=== PATIENT | female | born 1975 | race Caucasian/White ===

== ENCOUNTER 2017-07-09 16:36 | Emergency (ER) | payer BC ==
[~2017-07-09] VITALS: Ht 152.4 cm; Wt 63.0 kg
[~2017-07-09 16:36] MED LIST: ACEASPCAF PO; ACET325; ALBU8HFA2 INH; ALBU90OI; ALBU90OI INH; ALBU90OI6 INH; ALBU90OI61 INH; ALPR.5 PO; ALPR1 PO; AMOCLA875 PO; AMOX500 PO; ANTOXYBENA AS; ASPI81CH PO; AZIT250 PO; Ativan1 MG PO; BENADRYL25 MG PO; Bactrim Ds Tab1 EACH PO; CEPH500 PO; CHOL10002 PO; CLOP75 PO; CRUTCH3 USE; CYCL10 PO; Ciloxan5 ML RIGHTEAR; Cleocin HCl300 MG PO; DIPATR PO; DOXY100 PO; ESTR2 PO; ESTRADIOL PO; ESTROVEN ENER PO; FAMO20 PO; FAMO40 PO; FERR325 PO; FLUO10 PO; FLUO20 PO; FLUSAL2505 IH; GABA300 PO; GUAI600T33 PO; HYDACE10B PO; HYDACE5 PO; HYDACE5325 PO; HYDACE7.5 PO; HYDHCL25 PO; HYDR1TAB94 PO; HYOS.125 SL; IBUP200; IBUP200 PO; IBUP600 PO; IBUP800 PO; Imitrex100 MG PO; Imitrex25 MG PO; Keflex500 MG PO; LEVFLO500; LEVFLO500 PO; LISI20 PO; LISI5 PO; MAGCIT300 PO; MECL25 PO; NAPR500 PO; NAPR550 PO; NITR.4SL SL; OMEP20ER PO; ONDA4 PO; ONDA4ODT MM; OXYACE5T; OXYACE5T PO; OXYCODONE PO; Omeprazole20 M1 PO; PANT40 PO; PARO10 PO; PARO20 PO; PARO25 PO; PENVK500 PO; PHENA200 PO; PHENTERMINE PO; PRED10 PO; PRED20 PO; PROACE100 PO; PROCODE120 PO; PROM25 PO; PSEU120ER PO; Pepcid40 MG PO; Percocet 5-3251 EACH PO; Prednisone20 MG PO; Prilosec Otc20 MG PO; RANI150 PO; RXHYDACE PO; RXOXYACE PO; RXPROM25 PO; RXTRAM50 PO; Roxicodone5 MG PO; SUCR1 PO; SULI150 PO; SULTRIDS PO; SUMA25 PO; TOPI100 PO; TRAM50 PO; Ultram50 MG PO; Zithromax250 MG PO; [UNRECOGNIZED DRUG - REMARK]
[2017-07-09 17:38] LABS: BASOPHILS ABSOLUTE AUTO 0.01 K/mm3 (0.00-0.23); BASOPHILS PERCENT AUTO 0 % (0-2); EOSINOPHILS ABSOLUTE AUTO 0.03 K/mm3 (0.00-0.68); EOSINOPHILS PERCENT AUTO 1 % (0-6); Hematocrit 39.7 % (33.0-51.0); Hemoglobin 12.1 g/dL (11.5-16.0); IMMATURE GRAN ABSOLUTE AUTO 0.01 K/mm3 (0.00-0.10); IMMATURE GRAN PERCENT AUTO 0 % (0-1); LYMPHOCYTES ABSOLUTE AUTO 1.58 K/mm3 (0.84-5.20); LYMPHOCYTES PERCENT AUTO 35 % (21-46); MONOCYTES ABSOLUTE AUTO 0.29 K/mm3 (0.16-1.47); MONOCYTES PERCENT AUTO 6 % (4-13); Mean Corpuscular HGB 24.9 pg (26.0-34.0); Mean Corpuscular HGB Conc 30.5 g/dL (31.5-36.5); Mean Corpuscular Volume 82 fL (80-100); Mean Platelet Volume 9.5 fL (9.1-12.4); NEUTROPHILS ABSOLUTE AUTO 2.58 K/mm3 (1.96-9.15); NEUTROPHILS PERCENT AUTO 57 % (41-73); Platelet Count 280 K/mm3 (150-400); RDW Coefficient Variation 15.6 % (11.7-14.2); RDW Standard Deviation 46.6 fL (35.1-46.3); Red Blood Cell Count 4.85 M/mm3 (3.80-5.20)
[2017-07-09 18:01] LABS: Alanine Aminotransfer (ALT/SGP 20 U/L (12-78); Albumin/Globulin Ratio 0.9 (0.8-1.8); Alk Phos 80 U/L (50-136); Anion Gap 9 mmol/L (6-16); Aspartate Aminotrans (AST/SGOT 15 U/L (12-37); Bilirubin, Total 0.4 mg/dL (0.1-1.0); Blood Urea Nitrogen 10 mg/dL (8-24); Bun/Creatinine Ratio 17.3 (12.0-20.0); CO2, Blood 26 mmol/L (21-32); Calcium, Blood 9.4 mg/dL (8.5-10.1); Chloride, Blood 107 mmol/L (98-108); Creatinine, Blood 0.58 mg/dL (0.40-1.00); Globulin, Blood 4.3 g/dL (2.2-4.0); Glomerular Filtration Rate >60 (60-); Glucose, Blood 85 mg/dL (70-99); Potassium, Blood 3.7 mmol/L (3.5-5.5); Sodium, Blood 142 mmol/L (136-145); Total Protein, Blood 8.3 g/dL (6.4-8.2); Troponin I <0.015 ng/mL (0.000-0.040)
[2017-07-09] MEDS ORDERED: Norco 5-325 Ta1 EACH PO (19:27)
[2018-05-29] MEDS ORDERED: Cipro500 MG PO (02:29)
[2018-05-29] MEDS ORDERED: Flagyl500 MG PO (02:29)
== END 2017-07-09 19:43 | disposition home or self-care (01) ==
LOC: ER 16:36
PROVIDERS: Emergency Medicine
DX: R07.89 Other chest pain (principal); I10 Essential (primary) hypertension; G43.909 Migraine, unspecified, not intractable, without status migrainosus; F17.200 Nicotine dependence, unspecified, uncomplicated; J45.909 Unspecified asthma, uncomplicated; Z98.51 Tubal ligation status; Z90.712 Acquired absence of cervix with remaining uterus; Z90.49 Acquired absence of other specified parts of digestive tract
CPT/HCPCS: 36415; 71046; 80053; 84484; 85025; 93005; 93010; 99283

== ENCOUNTER 2017-07-20 15:51 | Emergency (ER) | payer BC ==
[~2017-07-20] VITALS: Ht 152.4 cm; Wt 67.1 kg
[~2017-07-20 15:51] MED LIST changes: +Norco 5-325 Ta1 EACH PO
[2017-07-20 17:05] LABS: BASOPHILS ABSOLUTE AUTO 0.02 K/mm3 (0.00-0.23); BASOPHILS PERCENT AUTO 0 % (0-2); EOSINOPHILS PERCENT AUTO 2 % (0-6); Hematocrit 33.2 % (33.0-51.0); Hemoglobin 10.1 g/dL (11.5-16.0); IMMATURE GRAN ABSOLUTE AUTO 0.01 K/mm3 (0.00-0.10); IMMATURE GRAN PERCENT AUTO 0 % (0-1); LYMPHOCYTES ABSOLUTE AUTO 1.53 K/mm3 (0.84-5.20); LYMPHOCYTES PERCENT AUTO 31 % (21-46); MONOCYTES ABSOLUTE AUTO 0.33 K/mm3 (0.16-1.47); MONOCYTES PERCENT AUTO 7 % (4-13); Mean Corpuscular HGB 24.9 pg (26.0-34.0); Mean Corpuscular HGB Conc 30.4 g/dL (31.5-36.5); Mean Corpuscular Volume 82 fL (80-100); Mean Platelet Volume 9.6 fL (9.1-12.4); NEUTROPHILS ABSOLUTE AUTO 2.98 K/mm3 (1.96-9.15); NEUTROPHILS PERCENT AUTO 60 % (41-73); Platelet Count 246 K/mm3 (150-400); RDW Coefficient Variation 15.8 % (11.7-14.2); RDW Standard Deviation 47.9 fL (35.1-46.3); Red Blood Cell Count 4.05 M/mm3 (3.80-5.20); White Blood Cell Count 4.97 K/mm3 (4.00-11.30)
[2017-07-20 17:26] LABS: Troponin I <0.015 ng/mL (0.000-0.040)
[2017-07-20 17:27] LABS: Anion Gap 6 mmol/L (6-16); Blood Urea Nitrogen 9 mg/dL (8-24); Bun/Creatinine Ratio 17.6 (12.0-20.0); CO2, Blood 26 mmol/L (21-32); Calcium, Blood 8.7 mg/dL (8.5-10.1); Chloride, Blood 108 mmol/L (98-108); Creatinine, Blood 0.51 mg/dL (0.40-1.00); Glomerular Filtration Rate >60 (60-); Glucose, Blood 89 mg/dL (70-99); Potassium, Blood 4.3 mmol/L (3.5-5.5); Sodium, Blood 140 mmol/L (136-145)
[2017-07-20] MEDS ORDERED: Ultram50 MG PO (17:56)
[2017-07-20 18:00] LABS: Influenza A Negative (NEGATIVE); Influenza B Negative (NEGATIVE)
[2018-05-29] MEDS ORDERED: Cipro500 MG PO (02:29)
[2018-05-29] MEDS ORDERED: Flagyl500 MG PO (02:29)
== END 2017-07-20 18:26 | disposition home or self-care (01) ==
LOC: ER 15:51
PROVIDERS: Emergency Medicine
DX: S20.219A Contusion of unspecified front wall of thorax, initial encounter (principal); J44.1 Chronic obstructive pulmonary disease with (acute) exacerbation; M94.0 Chondrocostal junction syndrome [Tietze]; I10 Essential (primary) hypertension; F17.210 Nicotine dependence, cigarettes, uncomplicated; Z86.19 Personal history of other infectious and parasitic diseases; Z90.49 Acquired absence of other specified parts of digestive tract; Z90.710 Acquired absence of both cervix and uterus; X58.XXXA Exposure to other specified factors, initial encounter; Y93.72 Activity, wrestling
CPT/HCPCS: 71046; 80048; 84484; 85025; 87804; 93005; 93010; 94644; 96374; 96375; 99283; J1885; J2405; J2930

== ENCOUNTER 2017-11-26 14:46 | Observation (INO) | payer BC ==
[~2017-11-26] VITALS: Ht 152.4 cm; Wt 73.0 kg
[2017-11-26 15:15] LABS: BASOPHILS ABSOLUTE AUTO 0.01 K/mm3 (0.00-0.23); BASOPHILS PERCENT AUTO 0 % (0-2); EOSINOPHILS ABSOLUTE AUTO 0.06 K/mm3 (0.00-0.68); EOSINOPHILS PERCENT AUTO 1 % (0-6); Hematocrit 38.8 % (33.0-51.0); Hemoglobin 11.8 g/dL (11.5-16.0); IMMATURE GRAN PERCENT AUTO 0 % (0-1); LYMPHOCYTES ABSOLUTE AUTO 2.47 K/mm3 (0.84-5.20); LYMPHOCYTES PERCENT AUTO 48 % (21-46); MONOCYTES ABSOLUTE AUTO 0.36 K/mm3 (0.16-1.47); MONOCYTES PERCENT AUTO 7 % (4-13); Mean Corpuscular HGB 23.6 pg (26.0-34.0); Mean Corpuscular HGB Conc 30.4 g/dL (31.5-36.5); Mean Corpuscular Volume 78 fL (80-100); Mean Platelet Volume 9.6 fL (9.1-12.4); NEUTROPHILS ABSOLUTE AUTO 2.25 K/mm3 (1.96-9.15); NEUTROPHILS PERCENT AUTO 44 % (41-73); Platelet Count 303 K/mm3 (150-400); RDW Coefficient Variation 17.1 % (11.7-14.2); RDW Standard Deviation 47.5 fL (35.1-46.3); Red Blood Cell Count 4.99 M/mm3 (3.80-5.20); White Blood Cell Count 5.15 K/mm3 (4.00-11.30)
[2017-11-26 15:31] LABS: Alanine Aminotransfer (ALT/SGP 23 U/L (12-78); Albumin, Blood 3.8 g/dL (3.4-5.0); Alk Phos 88 U/L (50-136); Anion Gap 7 mmol/L (6-16); Aspartate Aminotrans (AST/SGOT 18 U/L (12-37); Bilirubin, Total 0.4 mg/dL (0.1-1.0); Blood Urea Nitrogen 13 mg/dL (8-24); Bun/Creatinine Ratio 24.9 (12.0-20.0); CO2, Blood 27 mmol/L (21-32); Calcium, Blood 9.1 mg/dL (8.5-10.1); Chloride, Blood 107 mmol/L (98-108); Creatinine, Blood 0.52 mg/dL (0.40-1.00); Globulin, Blood 3.9 g/dL (2.2-4.0); Glomerular Filtration Rate >60 (60-); Glucose, Blood 94 mg/dL (70-99); Potassium, Blood 4.1 mmol/L (3.5-5.5); Sodium, Blood 141 mmol/L (136-145); Total Protein, Blood 7.7 g/dL (6.4-8.2)
[2017-11-26 17:34] LABS: Source, Urine Clean Catch
[2017-11-26 17:37] LABS: Bilirubin, Urine Neg (Neg); Blood, Urine Neg (Neg); Glucose Qualitative, Urine Neg (Neg); Ketones, Urine Neg (Neg); Leukocyte Esterase, Urine Neg (Neg); Nitrite, Urine Neg (Neg); Protein, Urine Neg (Neg); Urobilinogen, Urine NORM (Normal); pH, Urine 6.5 (5.0-8.0)
[2017-11-26 17:43] LABS: Appearance, Urine Clear (Clear); Color, Urine Yellow (P-Yellow)
[2017-11-26] MEDS ORDERED: Excedrin Extra1 EACH PO (20:12)
[2017-11-26] MEDS ORDERED: LORA.5 PO (20:12)
[2017-11-27 05:17] LABS: BASOPHILS ABSOLUTE AUTO 0.01 K/mm3 (0.00-0.23); BASOPHILS PERCENT AUTO 0 % (0-2); EOSINOPHILS ABSOLUTE AUTO 0.06 K/mm3 (0.00-0.68); EOSINOPHILS PERCENT AUTO 2 % (0-6); Hematocrit 33.5 % (33.0-51.0); Hemoglobin 10.2 g/dL (11.5-16.0); IMMATURE GRAN ABSOLUTE AUTO 0.01 K/mm3 (0.00-0.10); IMMATURE GRAN PERCENT AUTO 0 % (0-1); LYMPHOCYTES ABSOLUTE AUTO 2.13 K/mm3 (0.84-5.20); LYMPHOCYTES PERCENT AUTO 60 % (21-46); MONOCYTES ABSOLUTE AUTO 0.34 K/mm3 (0.16-1.47); MONOCYTES PERCENT AUTO 10 % (4-13); Mean Corpuscular HGB 23.6 pg (26.0-34.0); Mean Corpuscular HGB Conc 30.4 g/dL (31.5-36.5); Mean Corpuscular Volume 77 fL (80-100); Mean Platelet Volume 10.3 fL (9.1-12.4); NEUTROPHILS ABSOLUTE AUTO 1.03 K/mm3 (1.96-9.15); NEUTROPHILS PERCENT AUTO 29 % (41-73); Platelet Count 226 K/mm3 (150-400); RDW Standard Deviation 47.6 fL (35.1-46.3); Red Blood Cell Count 4.33 M/mm3 (3.80-5.20); White Blood Cell Count 3.58 K/mm3 (4.00-11.30)
[2017-11-27 05:39] LABS: Magnesium, Blood 2.1 mg/dL (1.6-2.4)
[2017-11-27 05:40] LABS: Alanine Aminotransfer (ALT/SGP 20 U/L (12-78); Albumin, Blood 3.1 g/dL (3.4-5.0); Alk Phos 72 U/L (50-136); Anion Gap 6 mmol/L (6-16); Aspartate Aminotrans (AST/SGOT 15 U/L (12-37); Bilirubin, Total 0.3 mg/dL (0.1-1.0); Blood Urea Nitrogen 10 mg/dL (8-24); Bun/Creatinine Ratio 17.1 (12.0-20.0); CO2, Blood 27 mmol/L (21-32); Calcium, Blood 8.5 mg/dL (8.5-10.1); Chloride, Blood 110 mmol/L (98-108); Creatinine, Blood 0.59 mg/dL (0.40-1.00); Globulin, Blood 3.2 g/dL (2.2-4.0); Glomerular Filtration Rate >60 (60-); Glucose, Blood 89 mg/dL (70-99); Potassium, Blood 4.4 mmol/L (3.5-5.5); Sodium, Blood 143 mmol/L (136-145); Total Protein, Blood 6.3 g/dL (6.4-8.2)
[2017-11-27 12:28] LABS: Hematocrit 34.6 % (33.0-51.0); Hemoglobin 10.6 g/dL (11.5-16.0)
[2017-11-27] MEDS ORDERED: SUCR1 PO (14:34)
[2017-11-27] MEDS ORDERED: Omeprazole20 M1 PO (14:34)
[2017-11-27] MEDS ORDERED: OXYC5 PO (14:35)
== END 2017-11-27 14:49 | disposition home or self-care (01) ==
LOC: ER 14:46 → MEDS 14:47 → ER 17:41 → MEDS 17:41
PROVIDERS: Internal Medicine; Internal Medicine Gastroenterology
PROC: 0DJ08ZZ Inspection of Upper Intestinal Tract, Via Natural or Artificial Opening Endoscopic (ICD-10-PCS; principal; 2017-11-27 08:00)
DX: K29.60 Other gastritis without bleeding (principal); K25.9 Gastric ulcer, unspecified as acute or chronic, without hemorrhage or perforation; K29.80 Duodenitis without bleeding; M79.7 Fibromyalgia; J45.909 Unspecified asthma, uncomplicated; G43.909 Migraine, unspecified, not intractable, without status migrainosus; Z87.891 Personal history of nicotine dependence; Z88.8 Allergy status to other drugs, medicaments and biological substances; Z88.6 Allergy status to analgesic agent
CPT/HCPCS: 36415; 74022; 74177; 80053; 81003; 83690; 83735; 85014; 85018; 85025; 93005; 93010; 96374; 96375; 96376; 99285; C9113; G0378; J0780; J2405; J3010; J7030; J7120; Q9967

== ENCOUNTER 2018-07-28 22:01 | Observation (INO) | payer OTHER ==
[~2018-07-28] VITALS: Ht 152.4 cm; Wt 72.6 kg
[~2018-07-28 22:01] MED LIST changes: +Cipro500 MG PO; +Excedrin Extra1 EACH PO; +Flagyl500 MG PO; +LORA.5 PO; +OXYC5 PO
[2018-07-28] MEDS ORDERED: TOPI50 PO (22:18)
[2018-07-28] MEDS ORDERED: OMEPRAZOLE MAGN20 MG PO (22:18)
[2018-07-28 22:30] LABS: BASOPHILS ABSOLUTE AUTO 0.01 K/mm3 (0.00-0.23); BASOPHILS PERCENT AUTO 0 % (0-2); EOSINOPHILS ABSOLUTE AUTO 0.06 K/mm3 (0.00-0.68); EOSINOPHILS PERCENT AUTO 1 % (0-6); Hematocrit 41.8 % (33.0-51.0); Hemoglobin 12.9 g/dL (11.5-16.0); IMMATURE GRAN ABSOLUTE AUTO 0.02 K/mm3 (0.00-0.10); IMMATURE GRAN PERCENT AUTO 0 % (0-1); LYMPHOCYTES ABSOLUTE AUTO 3.85 K/mm3 (0.84-5.20); LYMPHOCYTES PERCENT AUTO 55 % (21-46); MONOCYTES ABSOLUTE AUTO 0.44 K/mm3 (0.16-1.47); MONOCYTES PERCENT AUTO 6 % (4-13); Mean Corpuscular HGB 26.8 pg (26.0-34.0); Mean Corpuscular HGB Conc 30.9 g/dL (31.5-36.5); Mean Corpuscular Volume 87 fL (80-100); Mean Platelet Volume 10.3 fL (9.1-12.4); NEUTROPHILS ABSOLUTE AUTO 2.66 K/mm3 (1.96-9.15); NEUTROPHILS PERCENT AUTO 38 % (41-73); Platelet Count 248 K/mm3 (150-400); RDW Coefficient Variation 16.3 % (11.7-14.2); RDW Standard Deviation 51.8 fL (35.1-46.3); Red Blood Cell Count 4.81 M/mm3 (3.80-5.20); White Blood Cell Count 7.04 K/mm3 (4.00-11.30)
[2018-07-28 22:46] LABS: Alanine Aminotransfer (ALT/SGP 22 U/L (12-78); Albumin, Blood 3.8 g/dL (3.4-5.0); Alk Phos 71 U/L (50-136); Anion Gap 5 mmol/L (6-16); Aspartate Aminotrans (AST/SGOT 20 U/L (12-37); Bilirubin, Total 0.2 mg/dL (0.1-1.0); Blood Urea Nitrogen 11 mg/dL (8-24); CO2, Blood 27 mmol/L (21-32); Calcium, Blood 8.9 mg/dL (8.5-10.1); Chloride, Blood 107 mmol/L (98-108); Creatinine, Blood 0.79 mg/dL (0.40-1.00); Globulin, Blood 3.9 g/dL (2.2-4.0); Glomerular Filtration Rate >60 (60-); Glucose, Blood 68 mg/dL (70-99); Potassium, Blood 3.7 mmol/L (3.5-5.5); Sodium, Blood 139 mmol/L (136-145); Total Protein, Blood 7.7 g/dL (6.4-8.2); Troponin I <0.015 ng/mL (0.000-0.040)
[2018-07-29 04:10] LABS: U Amphetamine Screen Not Detected; U Barbituate Screen Not Detected; U Benzodiazapine Screen Not Detected; U Buprenorphine Screen Not Detected; U Cannabinoids Screen DETECTED; U Cocaine Screen Not Detected; U Methadone Screen Not Detected; U Methamphetamine Screen Not Detected; U Opiates Screen Not Detected; U Oxycodone Screen Not Detected; U Phencyclidine Screen Not Detected; U Propoxyphene Screen Not Detected
[2018-07-29 05:07] LABS: Hemoglobin 12.1 g/dL (11.5-16.0); Mean Corpuscular HGB 26.5 pg (26.0-34.0); Mean Corpuscular Volume 85 fL (80-100); Mean Platelet Volume 10.5 fL (9.1-12.4); Platelet Count 177 K/mm3 (150-400); RDW Coefficient Variation 16.3 % (11.7-14.2); RDW Standard Deviation 50.5 fL (35.1-46.3); Red Blood Cell Count 4.57 M/mm3 (3.80-5.20); White Blood Cell Count 4.01 K/mm3 (4.00-11.30)
[2018-07-29 05:29] LABS: Alanine Aminotransfer (ALT/SGP 16 U/L (12-78); Albumin, Blood 3.7 g/dL (3.4-5.0); Albumin/Globulin Ratio 1.1 (0.8-1.8); Alk Phos 69 U/L (50-136); Anion Gap 8 mmol/L (6-16); Aspartate Aminotrans (AST/SGOT 15 U/L (12-37); Bilirubin, Total 0.2 mg/dL (0.1-1.0); Blood Urea Nitrogen 10 mg/dL (8-24); Bun/Creatinine Ratio 15.3 (12.0-20.0); CO2, Blood 22 mmol/L (21-32); Calcium, Blood 8.9 mg/dL (8.5-10.1); Chloride, Blood 114 mmol/L (98-108); Creatinine, Blood 0.65 mg/dL (0.40-1.00); Globulin, Blood 3.5 g/dL (2.2-4.0); Glomerular Filtration Rate >60 (60-); Glucose, Blood 127 mg/dL (70-99); Sodium, Blood 144 mmol/L (136-145); Total Protein, Blood 7.2 g/dL (6.4-8.2)
[2018-07-29] MEDS ORDERED: ONDA4ODT MM (11:47)
== END 2018-07-29 12:26 | disposition home or self-care (01) ==
LOC: ER 22:01 → ERHOLD 22:02
PROVIDERS: Physician Assistant; ADMIT Internal Medicine
DX: R07.2 Precordial pain (principal); M79.7 Fibromyalgia; J45.909 Unspecified asthma, uncomplicated; F17.210 Nicotine dependence, cigarettes, uncomplicated; Z86.19 Personal history of other infectious and parasitic diseases; Z87.11 Personal history of peptic ulcer disease; Z23 Encounter for immunization
CPT/HCPCS: 36415; 71046; 80053; 83605; 83690; 84484; 85025; 85027; 90686; 93005; 93010; 94640; 96361; 96374; 96375; 99285-25; G0378; J1650; J1885; J2310; J2405; J2930; J7030